=== PATIENT | female | born 1950 | race Caucasian/White ===

== ENCOUNTER 2019-11-21 14:22 | Inpatient (IN) | payer MEDICARE, OTHER ==
[~2019-11-21] VITALS: Ht 167.6 cm; Wt 64.6 kg
[2019-11-21] MEDS ORDERED: PROG1CAP8 PO (14:35)
[2019-11-21] MEDS ORDERED: ESTRADIOL PO (14:38)
[2019-11-21] MEDS ORDERED: ESCI20TA PO (14:38)
[2019-11-21] MEDS ORDERED: PERCOCET 5MG/325MG TAB PO ONE (15:00)
[2019-11-21] MEDS ORDERED: ISOVUE-370 76% 100ML VIAL (Q9967) As Ordered ONE (15:03)
[2019-11-21] MEDS: NS 1,000 ML IV SCH ×3 (15:12→21:44)
--- NOTE | 2019-11-21 15:19 | REP ---
Clinical: Fall . Comparison: None. Technique: Axial noncontrast images from the skull base to the vertex with coronal re-formations. . Findings: The ventricles, sulci, and cisterns are normal in position and appearance. Mccauley-white differentiation is maintained. No acute intracranial hemorrhage, mass/mass effect, pathology or trauma/injury. No evidence for acute infarction. No extra-axial fluid collection. Calvarium is intact. Paranasal sinuses and mastoid air cells are clear. Impression: Normal noncontrast head CT. No evidence for acute intracranial pathology or trauma/injury. Electronically Signed by Devin Gagnon MD 11/21/2019 03:10 P
--- NOTE | 2019-11-21 15:21 | REP ---
Clinical: Trauma. Fall. Technique: Axial noncontrast images of the thoracic spine with coronal and sagittal re-formations. Findings: Alignment and kyphosis maintained. Minimal age-related degenerative changes are appreciated. No acute fracture / compression injury or subluxation. Spinal canal is patent. Posterior elements and spinous processes are intact. Paravertebral soft tissues are normal. Visualized lung mcclendon suggest left-sided infiltrate. Impression: Age-appropriate thoracic spine CT. No acute fracture / compression injury or subluxation. Electronically Signed by Devni Gagnon MD 11/21/2019 03:13 P
--- NOTE | 2019-11-21 15:22 | REP ---
Clinical: Fall . Technique: Axial noncontrast images from the skull base to the thoracic inlet with coronal and sagittal re-formations Findings: Normal alignment and lordosis is maintained. Cervical vertebral bodies including transverse processes and spinous processes are intact and there is no evidence for acute fracture / compression injury or subluxation. Spinal canal is patent. Posterior elements are intact. Moderate multilevel degenerative disc osteophyte complexes are appreciated. Impression: Moderate multilevel degenerative spondylosis. No evidence for acute pathology or trauma/injury. Electronically Signed by Devin Gagnon MD 11/21/2019 03:14 P
--- NOTE | 2019-11-21 15:24 | REP ---
Clinical: Trauma. Fall. Technique: Axial images from L1 through mid sacrum with coronal and sagittal re-formations. Findings: Vertebral bodies are intact and there is no evidence for acute fracture / compression injury or acute subluxation. Grade 1 anterolisthesis at the L3-4 level of approximately 3 mm likely chronic. Para vertebral soft tissues are normal. Impression: No acute fracture / compression injury or acute subluxation. Electronically Signed by Devin Gagnon MD 11/21/2019 03:16 P
--- NOTE | 2019-11-21 15:29 | REP ---
Clinical: Trauma. Fall. Technique: Axial contrast enhanced images from the thoracic inlet to the upper abdomen with coronal and sagittal re-formations. Findings: Left mid clavicular shaft fracture. Fracture along the to anterior margin of the left first rib. Multipartite fractures of the left second through fifth ribs with fractures identified anterolaterally and posteriorly. Associated small areas of pulmonary contusion involving the left upper lobe as well as minimal left lower lobe atelectasis. No pneumothorax. Mediastinum is unremarkable and without evidence for acute injury. Thoracic aorta is without aneurysm or dissection. No cardiomegaly or pericardial effusion. No mediastinal fluid. 2 mm noncalcified nodule in the right upper lobe noted. Impression: 1. Multipartite anterolateral and posterior displaced left second through fifth rib fractures. 2. Anterior nondisplaced fracture of the left first rib. 3. Left mid clavicular shaft fracture. 4. Small areas of pulmonary contusion involving the left upper lobe and minimal left basilar atelectasis. Electronically Signed by Devin Gagnon MD 11/21/2019 03:20 P
[2019-11-21 15:45] LABS: HEMATOCRIT 44.4 % (36.0-47.0); HEMOGLOBIN 14.3 g/dl (12.0-15.5); MEAN CORPUSCULAR HEMOGLOBIN 32.5 pg (27.0-33.0); MEAN CORPUSCULAR HGB CONC 32.2 g/dl (32.0-36.5); MEAN CORPUSCULAR VOLUME 100.9 fl (80.0-96.0); PLATELET COUNT, AUTOMATED 166 10^3/uL (150-450); WHITE BLOOD COUNT 11.2 10^3/uL (4.0-10.0)
[2019-11-21] MEDS ORDERED: ACETAMINOPHEN TAB 650MG DOSE (2X325MG) PO PRN (15:45)
[2019-11-21] MEDS ORDERED: ONDANSETRON 4 MG TAB (S0181) PO PRN (15:45)
--- NOTE | 2019-11-21 15:56 | ECGEPIP ---
[facility] - ED Test Date: 2019-11-21 Pat Name: KADEN CLINE Department: Room: - Gender: Female [employer]: : 1950 Requested By: BEATRIS LOUISE Order Number: [id number] Reading MD: Nixon Zhang Measurements Intervals Spring Rate: 59 P: 71 VA: 140 QRS: 32 QRSD: 90 T: -16 QT: 450 QTc: 446 Interpretive Statements SINUS BRADYCARDIA INCOMPLETE RIGHT BUNDLE BRANCH BLOCK NSTTW ABNORMALITIES NO PRIORS FOR COMPARISON Electronically Signed on 11-21-2019 15:56:12 EST by Nixon Zhang
[2019-11-21 15:58] LABS: INR 1.08; PROTHROMBIN TIME 13.7 SECONDS (11.8-14.0)
[2019-11-21] MEDS ORDERED: ESTR0.5T3 PO (15:58)
[2019-11-21 16:07] LABS: CPK CREATINE PHOSPHOKINASE 168 U/L (26-192); MB/CK RELATIVE INDEX 5.95 (< OR =4); TROPONIN I < 0.02 NG/ML (< 0.10)
[2019-11-21] MEDS ORDERED: MULTCAP PO (16:09)
[2019-11-21] MEDS ORDERED: OMEG10002 PO (16:09)
[2019-11-21] MEDS ORDERED: VITA100066 PO (16:09)
[2019-11-21] MEDS ORDERED: CALC600T60 PO (16:10)
[2019-11-21] MEDS ORDERED: ZOLP10TA2 PO (16:11)
[2019-11-21 16:13] LABS: ALBUMIN 3.3 GM/DL (3.2-5.2); ALT/SGPT 31 U/L (12-78); BILIRUBIN,DIRECT < 0.1 MG/DL (0.0-0.2); BILIRUBIN,TOTAL 0.4 MG/DL (0.2-1.0); BLOOD UREA NITROGEN 16 MG/DL (7-18); CALCIUM LEVEL 7.9 MG/DL (8.8-10.2); CARBON DIOXIDE LEVEL 24 MEQ/L (21-32); CHLORIDE LEVEL 105 MEQ/L (98-107); CREATININE FOR GFR 0.69 MG/DL (0.55-1.30); GLOMERULAR FILTRATION RATE > 60.0 (>45); GLUCOSE, FASTING 98 MG/DL (70-100); POTASSIUM SERUM 4.2 MEQ/L (3.5-5.1); SODIUM LEVEL 136 MEQ/L (136-145); TOTAL PROTEIN 6.9 GM/DL (6.4-8.2)
[2019-11-21 17:06] VITALS: BP 146/75
[2019-11-21] MEDS: ONDANSETRON 4MG/2ML VIAL (J2405) IV PRN (17:57)
[2019-11-21] MEDS: MORPHINE 2 MG/ML 1ML VIAL (J2270) IV PRN (17:57)
[2019-11-21] MEDS: SENOKOT S TAB PO SCH (20:38)
[2019-11-21] MEDS: KETOROLAC 30 MG/ML VIAL (J1885) IV PRN (20:39)
[2019-11-21 22:00] VITALS: BP 133/76
[2019-11-22] MEDS: MORPHINE 2 MG/ML 1ML VIAL (J2270) IV PRN (01:45)
[2019-11-22] MEDS: NS 1,000 ML IV SCH ×2 (01:46→05:50)
[2019-11-22] MEDS: ONDANSETRON 4MG/2ML VIAL (J2405) IV PRN ×3 (01:52→16:10)
[2019-11-22 02:00] VITALS: BP 130/70
[2019-11-22 06:00] VITALS: BP 126/71
[2019-11-22 06:26] LABS: HEMATOCRIT 38.3 % (36.0-47.0); MEAN CORPUSCULAR HGB CONC 32.1 g/dl (32.0-36.5); MEAN CORPUSCULAR VOLUME 102.7 fl (80.0-96.0); PLATELET COUNT, AUTOMATED 150 10^3/uL (150-450); RED BLOOD COUNT 3.73 10^6/uL (4.00-5.40); WHITE BLOOD COUNT 6.5 10^3/uL (4.0-10.0)
[2019-11-22 06:27] LABS: HEMOGLOBIN 12.3 g/dl (12.0-15.5)
[2019-11-22 06:41] LABS: BLOOD UREA NITROGEN 11 MG/DL (7-18); CALCIUM LEVEL 7.6 MG/DL (8.8-10.2); CARBON DIOXIDE LEVEL 23 MEQ/L (21-32); CHLORIDE LEVEL 113 MEQ/L (98-107); CREATININE FOR GFR 0.62 MG/DL (0.55-1.30); GLOMERULAR FILTRATION RATE > 60.0 (>45); GLUCOSE, FASTING 96 MG/DL (70-100); POTASSIUM SERUM 3.7 MEQ/L (3.5-5.1); SODIUM LEVEL 140 MEQ/L (136-145)
[2019-11-22] MEDS: SENOKOT S TAB PO SCH ×2 (08:33→20:35)
[2019-11-22] MEDS: NORCO, ANEXSIA 5/325MG TABLET (HYDROcodone/ACETAMINOPHEN) PO PRN ×2 (08:34→15:08)
[2019-11-22 10:00] VITALS: BP 127/69
--- NOTE | 2019-11-22 10:17 | REP ---
Clinical: Rib fracture. Technique: PA and lateral. Comparison: None. Findings: Multiple sided rib fractures are again identified and consistent with findings on recent chest CT. A new small left apical pneumothorax is now identified. Left lower lobe opacity and small pleural effusion appreciated. Left clavicle fracture noted. Mediastinum and cardiac silhouette are normal. Right hemithorax appears relatively clear. Impression: 1. Known left rib fractures and left clavicle fracture. 2. New small left apical pneumothorax. 3. Left lower lobe opacity and small pleural effusion. Electronically Signed by Devin Gagnon MD 11/22/2019 10:08 A
--- NOTE | 2019-11-22 11:30 | CR ---
DATE OF CONSULTATION: 11/22/2019 CHIEF COMPLAINT: Left shoulder pain. HISTORY OF PRESENT ILLNESS: Hleen is a 69-year-old female. She fell down some stairs yesterday and broke several ribs, sustained a pneumothorax and fractured her clavicle on the left side. She has been having some shoulder pain with deep breaths. She has a wedding band on the ring finger of the left upper extremity that she has not been able to get off for a number of years. She is not complaining of chest pain or shortness of breath. Denies numbness and tingling. Denies right shoulder pain. Summary is reviewed in the remainder of the chart. Imaging studies included a chest x-ray that reflected a left clavicle diaphyseal fracture. CT scan reflects the same and the addition of multiple rib fractures. She has also had CT of the lumbar spine. No acute fracture. She had a CT scan of the thoracic spine with no thoracic fractures appreciated by radiology. She had a CT of the cervical spine with multilevel degenerative spondylosis without obvious fracture. She had a head CT that was negative. ALLERGIES: She has a sensitivity to latex. MEDICATIONS: Normally not taking medications. MEDICAL HISTORY: Medical history is not remarkable. SOCIAL HISTORY: Does not smoke. Lives independently. FAMILY HISTORY: Not contributory. REVIEW OF SYSTEMS: See history of present illness (HPI). Complains of some chest pain with deep breaths. Left shoulder pain. Not complaining of numbness, tingling, headache, nausea, stomach trouble, emotional troubles, integument troubles, endocrine troubles. CLINICAL EXAM: Alert, oriented and cooperative. Mood and affect appropriate. She is pleasant. Voice is clear. She is not in distress. Left upper extremity: I was not able to get the ring off the ring finger of the left upper extremity. There seems to be mild edema in the fingers, including around the knuckle. I can spin the ring. There is good capillary refill. There is good motion of the fingers. There is no triggering. Neurologically intact upper extremities. Tender over the clavicle. Not tenting of skin. IMPRESSION: Clavicle fracture diaphysis left. Ring on ring finger. Multiple rib fractures. RECOMMENDATIONS: I talked to the patient about removing the ring and explained that technically that would be the appropriate thing to do at this time. The ring can be repaired by a jeweler. The rationale for removing the ring is with a left shoulder injury she may develop swelling in the left upper extremity at that time that could compromise circulation to the finger and unfortunately removing the ring on a very swollen digit can be very difficult and cause injury getting the ring cutter under the ring at that time. Therefore, I explained that it is better to remove the ring prior to getting severe swelling in the finger versus taking our chances in elevating the extremity. Given her choices, the patient feels that she would like the ring removed. Will obtain a ring cutter and remove it.
[2019-11-22] MEDS: KETOROLAC 30 MG/ML VIAL (J1885) IV PRN ×2 (12:12→19:16)
[2019-11-22 14:00] VITALS: BP 126/68
--- NOTE | 2019-11-22 16:29 | HPE ---
DATE OF ADMISSION: 11/21/2019 CHIEF COMPLAINT: Fall downstairs. HISTORY OF PRESENT ILLNESS: The patient is a 69-year-old female who was bringing down boxes from upstairs to start putting away her [employer] decorations and somehow she slipped and fell down a flight of stairs. She claimed that she tumbled down. No loss of consciousness. She ended up landing on her back but was in significant pain in the left upper chest area. She was brought into emergency room everything was normal as far as labs go only injuries were fractures of the left clavicle and left 1st through 5th ribs. No signs of any pneumothorax or hemothorax. Head neck CT is read essentially negative other than the fractures other than a slight contusion of the left lung. I saw her this morning, other than the chest pain and shoulder pain. She has no other complaints. No new injuries. Strength and sensation are intact in bilateral upper extremities. No pain or bruising and that she is aware in the rest of her abdomen or her lower extremities. She denies any nausea or vomiting. No problems with urination or bowel movements. She has been out of bed walking around. PAST MEDICAL HISTORY: Negative. PAST SURGICAL HISTORY: Colonoscopy. ALLERGIES: None. HOME MEDICATIONS: Please see med record. REVIEW OF SYSTEMS: Pertinent, positives and negatives in the HPI. PHYSICAL EXAMINATION: General alert and oriented times three. No acute distress. Vitals: Temperature 97, pulse 57, respirations 17, blood pressure 126/71, pulse ox 97% room air. HEENT: Pupils equal round react to light accommodation. Heart: S1-S2 regular rate and Lungs: Clear auscultation bilaterally. Abdomen: Soft, nontender, nondistended. Extremities: No clubbing, cyanosis or edema. There is equal muscle strength and sensation bilateral upper extremities. LABORATORY DATA: White count 11.2 down to 6.5, hemoglobin 12.3, platelets 150, potassium 3.7, creatinine 0.62. IMAGING STUDIES: Head and C-spine, thoracic and lumbar spine and chest CTs were all completed in the emergency room they showed anterior lateral and posterior displaced left second through fifth rib fractures and anterior nondisplaced fracture of the left first rib left mid clavicular shaft fracture, small areas of pulmonary contusion the left upper lobe with minimal left basilar atelectasis. Rest of imaging was negative. Repeat chest x-ray this morning shows again the rib fractures and clavicular fracture. However, also shows a new small left apical pneumothorax left lower lobe opacity and small pleural effusion. ASSESSMENT/PLAN: The patient 69-year-old female status post fall down a flight of stairs currently on with left first through fifth rib fractures and left clavicular fracture discussed her case with Dr. Guevara who has already evaluated her from an ortho standpoint. He will likely keep her in the arm sling and followup with her as an outpatient. As far as the rib fracture is concern. There is no major displacement and no difficulty with respirations or oxygenation so no indication for any bleeding at this time. Pain is also controlled with p.o. pain med. Plan is to continue with incentive spirometer continue to monitor her closely. I explained to her that if she has increased pain or shortness of breath then we will revaluate with another chest x-ray and if it shows increased of the pneumothorax she will likely need some form of chest tube. If not, if this small apical pneumothorax remains the same or improves then we will likely be able to discharge her home tomorrow. and we will likely be able to discharge her home tomorrow. Her questions were all answered and she will be discharged hopefully tomorrow pending -ray results.
[2019-11-22 18:00] VITALS: BP 120/66
[2019-11-22] MEDS ORDERED: zolPIDEM TARTRATE 5 MG TAB PO SCH (21:00)
[2019-11-22 22:00] VITALS: BP 120/62
[2019-11-23] MEDS: NORCO, ANEXSIA 5/325MG TABLET (HYDROcodone/ACETAMINOPHEN) PO PRN ×2 (00:48→07:52)
[2019-11-23 02:00] VITALS: BP 122/64
[2019-11-23 06:00] VITALS: BP 122/63
[2019-11-23 06:54] LABS: HEMATOCRIT 36.4 % (36.0-47.0); HEMOGLOBIN 11.7 g/dl (12.0-15.5); MEAN CORPUSCULAR HEMOGLOBIN 33.1 pg (27.0-33.0); MEAN CORPUSCULAR HGB CONC 32.1 g/dl (32.0-36.5); MEAN CORPUSCULAR VOLUME 102.8 fl (80.0-96.0); PLATELET COUNT, AUTOMATED 131 10^3/uL (150-450); RED BLOOD COUNT 3.54 10^6/uL (4.00-5.40)
[2019-11-23 07:29] LABS: BLOOD UREA NITROGEN 9 MG/DL (7-18); CALCIUM LEVEL 7.6 MG/DL (8.8-10.2); CARBON DIOXIDE LEVEL 24 MEQ/L (21-32); CHLORIDE LEVEL 112 MEQ/L (98-107); CREATININE FOR GFR 0.54 MG/DL (0.55-1.30); GLOMERULAR FILTRATION RATE > 60.0 (>45); GLUCOSE, FASTING 93 MG/DL (70-100); POTASSIUM SERUM 3.6 MEQ/L (3.5-5.1); SODIUM LEVEL 141 MEQ/L (136-145)
--- NOTE | 2019-11-23 08:10 | REP ---
Clinical: Trauma. Rib fractures with pneumothorax. Technique: PA and lateral. Comparison: 11/22/2019. Findings: A small relatively stable left apical pneumothorax is again noted. Pleural fluid and left basilar atelectasis are slightly increased from prior examination. Left rib fractures are again identified along with displaced left clavicle fracture. Small right pleural reaction unchanged. No new process identified. Impression: Continued evidence for small left apical pneumothorax. Small but increased left pleural effusion and left lower lobe atelectasis. Electronically Signed by Devin Gagnon MD 11/23/2019 08:02 A
[2019-11-23] MEDS ORDERED: IBUP80TA PO (08:24)
[2019-11-23] MEDS ORDERED: SENN-50 PO (08:24)
[2019-11-23] MEDS ORDERED: ZOFR8TAB24 PO (08:24)
[2019-11-23] MEDS ORDERED: HYDR-4571 PO (08:24)
[2019-11-23] MEDS: SENOKOT S TAB PO SCH (08:43)
--- NOTE | 2019-11-23 19:36 | DSES ---
DATE OF ADMISSION: 11/21/2019 DATE OF DISCHARGE: 11/23/2019 ADMISSION DIAGNOSIS: Fall. DISCHARGE DIAGNOSIS: Left rib fractures, left clavicular fracture, and small apical pneumothorax on the left. HOSPITAL COURSE: The patient is a 69-year-old female who presented after a fall down a flight of wooden stairs, who presented with left shoulder pain. Found to have left clavicular, left 1st through 5th rib fractures, and a small contusion to the left apical lung. After the first hospital day her pain was controlled. Dr. Guevara evaluated her for clavicular fracture. Recommend she take her rings off her fingers before she ends up with swelling. He also said that she does not need to wear the splint for the arm if she does not want it. She will followup with him in the office within the next couple weeks. There were no signs of any pneumothorax on initial x-ray or CT scan. X-ray after her first 24 hours showed that there was a small apical pneumothorax with a little bit of atelectasis and small effusion in the left base of the lung. Because of that, I kept her overnight again. This morning, the x-ray is essentially unchanged as far as the pneumothorax goes, a little bit more atelectasis, a little more fluid, but otherwise normal. Labs have all been normal. She has no complaints other than the pain in the left shoulder and the left neck and the visible deformity of the left clavicle. At this time, plan is to discharge her home. I discussed in detail with her what atelectasis is, the risk for pneumonia, the risks for the pneumothorax expanding with all of multiple rib fractures. She completely understands and appears to be a very reliable patient. I advised her if there is any coughing, fevers, or any other concerns, to either call our office or come right back to the emergency room immediately. She completely understands and will call us with any questions.
== END 2019-11-23 10:46 | disposition home or self-care (01) | DRG 200 ==
LOC: EDBD 14:22 → M ED 14:22 → M ED INP 15:41 → M MSPAV 17:06
PROVIDERS: ADMIT Surgery; ATTEND Surgery
DX: S27.0XXA Traumatic pneumothorax, initial encounter (principal); S22.42XA Multiple fractures of ribs, left side, initial encounter for closed fracture; S27.321A Contusion of lung, unilateral, initial encounter; J98.11 Atelectasis; S42.025A Nondisplaced fracture of shaft of left clavicle, initial encounter for closed fracture; W10.9XXA Fall (on) (from) unspecified stairs and steps, initial encounter; Y92.009 Unspecified place in unspecified non-institutional (private) residence as the place of occurrence of the external cause; Z91.040 Latex allergy status

== ENCOUNTER → 2022-06-17 | Outpatient (CLI) | payer MEDICARE, OTHER ==
[~2022-06-17] MED LIST: CALC600T60 PO; ESCI20TA16 PO; ESTR0.5T3 PO; ESTRADIOL PO; HYDR-4571 PO; IBUP80TA PO; MULTCAP PO; OMEG10002 PO; PROG1CAP8 PO; PROHANCE 279.3MG/ML 15ML VIAL ONE; SENN-50 PO; VITA100066 PO; ZOFR8TAB24 PO; ZOLP10TA2 PO
== END ==
LOC: M PLAIMG 12:59
PROVIDERS: ATTEND Physician Assistant Surgical
DX: K86.2 Cyst of pancreas (principal)
CPT/HCPCS: 74183; A9576

== ENCOUNTER → 2023-06-06 | Outpatient (CLI) | payer MEDICARE, OTHER | LOC: M PLAIMG 09:25 | PROVIDERS: ATTEND Internal Medicine Gastroenterology | DX: K86.2 Cyst of pancreas (principal) | CPT/HCPCS: 74183; A9576 ==